=== PATIENT | male | born 1945 | race Caucasian/White ===

== ENCOUNTER 2016-10-14 04:03 | Outpatient (CLI) | payer MEDICARE, OTHER | END 2016-10-14 04:04 | disposition critical access hospital (66) | LOC: EMS 04:03 | PROVIDERS: ATTEND Surgery | DX: R55 Syncope and collapse (principal) | CPT/HCPCS: A0425; A0427 ==

== ENCOUNTER 2016-10-14 04:43 | Emergency (ER) | payer MEDICARE, OTHER ==
--- NOTE | 2016-10-14 05:18 | ED Physician Documentation ---
PD HPI SYNCOPE - Stated complaint Stated Complaint: GLF - Chief complaint Chief Complaint: Cardiac - History obtained from History obtained from: Patient, Family, EMS - History of Present Illness Witnessed: Witnessed Timing - onset: Enter time (299), Today Duration: Seconds Preceding symptoms: Diaphoresis, Light headed, Generalized weakness Associated symptoms: Seizure, Diaphoresis Contributing factors: Recent med change, Just stood up Injury occurred: Fell, Other (has some back pain similar to what he has had preivously with morning stiffness). No: Head injury, Neck injury, Bit tongue Similar symptoms before: Has not had sx before Recently seen: Not recently seen - Additional information Additional information: 71 y/o male with a history of afib is visiting [facility] from [place] has been here about a week and has developed a cough. He did have plane travel last week and he has been taking some Coricidin for nasal congestion and cough. He has taken about 6 doses today and he was awake in the tobacco grader with a feeling of anxiety. He was wondering if this was going to be the end. He eventually went to get up and felt dizzy and light headed and he stumbled about the room finally grabbing the door and then collapsing to the floor. His reports a brief seizure associated with this and he felt that he was feeling normal again relatively rapidly. When medics arrived they found the patient to be diaphoretic with BG of 183 and heart rate in the 90's in afib. Review of Systems Constitutional: reports: Sweats. denies: Fever Eyes: denies: Decreased vision Ears: denies: Ear pain Nose: reports: Rhinorrhea / runny nose, Congestion, Sinus pressure / pain Throat: denies: Sore throat Cardiac: denies: Chest pain / pressure, Palpitations Respiratory: reports: Cough. denies: Dyspnea GI: denies: Abdominal Pain, Nausea, Vomiting, Constipation, Diarrhea : denies: Dysuria, Frequency Skin: denies: Rash Musculoskeletal: denies: Neck pain, Back pain, Extremity pain Neurologic: reports: Syncope, Seizure, LOC. denies: Generalized weakness, Focal weakness, Numbness, Headache, Head injury PD PAST MEDICAL HISTORY - Present Medications Home Medications: Ambulatory Orders Medication Instructions Recorded Confirmed Allopurinol [Zyloprim] 300 mg PO DAILY 10/14/16 10/14/16 Aspirin 81 mg PO DAILY 10/14/16 10/14/16 Atorvastatin Calcium 40 mg PO DAILY 10/14/16 10/14/16 Azithromycin [Zithromax] 250 mg PO DAILY #6 tablet 10/14/16 Liraglutide [Victoza 2-Mando] 10/14/16 Lisinopril 40 mg PO DAILY 10/14/16 10/14/16 Loteprednol Etabonate [Lotemax] 1 drops EACHEYE BID 10/14/16 10/14/16 Metoprolol Tartrate 1.5 tab PO BID 10/14/16 10/14/16 Timolol 0.5% Ophth Drops [Timoptic 1 drops EACHEYE BID 10/14/16 10/14/16 0.5% Ophth Drops] Warfarin [Coumadin] 1.5 tab PO BID 10/14/16 10/14/16 metFORMIN [Glucophage] 500 mg PO DAILY 10/14/16 10/14/16 - Allergies Allergies/Adverse Reactions: Allergies Allergy/AdvReac Type Severity Reaction Status Date / Time No Known Drug Allergies Allergy Verified 10/14/16 04:52 PD ED PE NORMAL - Vitals Vital signs reviewed: Yes (hypertensive ) - General General: Alert and oriented X 3, No acute distress, Well developed/nourished - HEENT HEENT: Atraumatic, PERRL, EOMI, Moist mucous membranes, Pharynx benign, Other ( both TM's are with patchy erythema and distortion of the landmarks. 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, No motor deficit, No sensory deficit, Normal speech - Psych Psych: Normal mood, Normal affect Results - Vitals Vitals: Vital Signs - 24 hr 10/14/16 10/14/16 10/14/16 04:43 05:08 05:35 Temperature 36.0 C L Heart Rate 82 90 Respiratory 11 L 16 Rate Blood Pressure 152/98 H 133/88 H Blood Pressure 146/100 H [Left] Blood Pressure 159/99 H [Right] O2 Saturation 98 96 10/14/16 10/14/16 06:06 06:58 Temperature 36.7 C Heart Rate 91 84 Respiratory 12 12 Rate Blood Pressure 123/86 H 131/94 H Blood Pressure [Left] Blood Pressure [Right] O2 Saturation 97 96 Oxygen O2 Source Room air - EKG (time done) 0451 Rate: Rate (enter#) (85) Rhythm: Atrial fibrillation Ischemia: Non specific changes Compare to prior EKG: Old EKG unavailable Computer interpretation: Agree with computer - Labs Labs: Laboratory Tests 10/14/16 10/14/16 10/14/16 04:47 04:47 04:47 WBC 5.7 RBC 4.58 L Hgb 14.4 Hct 43.2 MCV 94.4 H MCH 31.5 H MCHC 33.3 RDW 13.9 Plt Count 138 MPV 9.7 Neut # 3.8 Lymph # 1.2 L Crane # 0.4 Eos # 0.1 Baso # 0.1 Absolute Nucleated RBC 0.00 Nucleated RBCs 0.0 PT 20.0 H INR 1.8 H Sodium 139 Potassium 4.0 Chloride 103 Carbon Dioxide 27 Anion Gap 9.0 BUN 13 Creatinine 0.6 Estimated GFR (MDRD) 134 Glucose 218 H Calcium 9.3 Total Bilirubin 0.9 AST 44 H ALT 45 Alkaline Phosphatase 93 Troponin I B-Natriuretic Peptide Total Protein 7.1 Albumin 4.0 Globulin 3.1 Albumin/Globulin Ratio 1.3 Lipase 38 Urine Color Urine Clarity Urine pH Ur Specific Pipestem Urine Protein Urine Glucose (UA) Urine Ketones Urine Occult Blood Urine Nitrite Urine Bilirubin Urine Urobilinogen Ur Leukocyte Esterase Urine RBC Urine WBC Ur Squamous Epith Cells Urine Bacteria Ur Microscopic Review Urine Culture Comments Ethyl Alcohol < 5.0 10/14/16 10/14/16 10/14/16 04:47 04:47 05:25 WBC RBC Hgb Hct MCV MCH MCHC RDW Plt Count MPV Neut # Lymph # Crane # Eos # Baso # Absolute Nucleated RBC Nucleated RBCs PT INR Sodium Potassium Chloride Carbon Dioxide Anion Gap BUN Creatinine Estimated GFR (MDRD) Glucose Calcium Total Bilirubin AST ALT Alkaline Phosphatase Troponin I < 0.04 B-Natriuretic Peptide 94 Total Protein Albumin Globulin Albumin/Globulin Ratio Lipase Urine Color YELLOW Urine Clarity CLEAR Urine pH 6.0 Ur Specific Pipestem 1.020 Urine Protein 30 H Urine Glucose (UA) NEGATIVE Urine Ketones NEGATIVE Urine Occult Blood TRACE-INTA Urine Nitrite NEGATIVE Urine Bilirubin NEGATIVE Urine Urobilinogen 0.2 (NORMAL) Ur Leukocyte Esterase NEGATIVE Urine RBC None Seen Urine WBC 0-3 Ur Squamous Epith Cells NONE SEEN Urine Bacteria None Seen Ur Microscopic Review INDICATED Urine Culture Comments NOT INDICATED Ethyl Alcohol 10/14/16 06:50 WBC RBC Hgb Hct MCV MCH MCHC RDW Plt Count MPV Neut # Lymph # Crane # Eos # Baso # Absolute Nucleated RBC Nucleated RBCs PT INR Sodium Potassium Chloride Carbon Dioxide Anion Gap BUN Creatinine Estimated GFR (MDRD) Glucose Calcium Total Bilirubin AST ALT Alkaline Phosphatase Troponin I < 0.04 B-Natriuretic Peptide Total Protein Albumin Globulin Albumin/Globulin Ratio Lipase Urine Color Urine Clarity Urine pH Ur Specific Pipestem Urine Protein Urine Glucose (UA) Urine Ketones Urine Occult Blood Urine Nitrite Urine Bilirubin Urine Urobilinogen Ur Leukocyte Esterase Urine RBC Urine WBC Ur Squamous Epith Cells Urine Bacteria Ur Microscopic Review Urine Culture Comments Ethyl Alcohol - Rads (name of study) two-view chest Radiology: Prelim report reviewed (Impression: 1. Borderline heart size. 2. No focal consolidation seen.), EMP read indepedently, See rad report CT head without Radiology: Prelim report reviewed (Impression: No acute or focal intracranial abnormality.), EMP read indepedently, See rad report Procedures - IVC sono (time) 0455 Bedside IVC sono: IVC measures (cm) (1.92), Euvolemia PD MEDICAL DECISION MAKING - ED course Complexity details: reviewed results, re-evaluated patient, considered differential, d/w patient, d/w family ED course: 71 y/o male with a dramatic syncope and seizure this morning now feels well and wants to go home. He was taking some coricidin with dextromethorphan and I suspect this caused the patients feeling of anxiety and confusion while he was awake and when he tried to get up he had the syncopal episode. He was not found to be dehydrated and his laboratory studies are all WNL as were imaging of the head and chest. He is ambulated in the department without difficulty and wants to catch a flight home this evening. He does have OM on exam but this appears mild and not likely related to anything except that he was taking the coridicin. A second troponin is negative and this well appearing and well acting male is discharged to follow up at home. He is given decadron 10mg PO for the OM. Departure - Departure Disposition: Home, Self Care Clinical Impression: Syncope, convulsive, Medication side effects Otitis media Qualifiers: Otitis media type: suppurative Laterality: bilateral Chronicity: acute Recurrence: not specified as recurrent Spontaneous tympanic membrane rupture: without spontaneous rupture Qualified Code(s): H66.003 - Acute suppurative otitis media without spontaneous rupture of ear drum, bilateral Condition: Stable Instructions: ED Ear Infec Wait See Abx Tx Ch, ED Syncope Vasovagal Follow-Up: Your, doctor [Other] Prescriptions: Azithromycin [Zithromax] 250 mg PO DAILY #6 tablet Comments: Today we have written a prescription for an antibiotic. You will need to have your INR checked in about 3 days.
[2016-10-14 05:25] LABS: BASOPHILS # (AUTO) 0.1 10^3/uL (0.0-0.1); BASOPHILS % (AUTO) 1.2 %; EOSINOPHILS # (AUTO) 0.1 10^3/uL (0.0-0.7); EOSINOPHILS % (AUTO) 1.8 %; HCT - HEMATOCRIT 43.2 % (42.0-52.0); HGB - HEMOGLOBIN 14.4 g/dL (14.0-18.0); LYMPHOCYTES # (AUTO) 1.2 10^3/uL (1.5-3.5); LYMPHOCYTES % (AUTO) 21.8 %; MEAN CORPUSCULAR HEMOGLOBIN 31.5 pg (27.0-31.0); MEAN CORPUSCULAR HGB CONC 33.3 g/dL (32.0-36.0); MEAN CORPUSCULAR VOLUME 94.4 fL (80.0-94.0); MEAN PLATELET VOLUME 9.7 fL (7.4-11.4); MONOCYTES # (AUTO) 0.4 10^3/uL (0.0-1.0); MONOCYTES % (AUTO) 7.5 %; NEUTROPHILS # (AUTO) 3.8 10^3/uL (1.5-6.6); NEUTROPHILS % (AUTO) 67.7 %; RED BLOOD COUNT 4.58 10^6/uL (4.70-6.10); RED CELL DISTRIBUTION WIDTH 13.9 % (12.0-15.0); UNCORRECTED WHITE BLOOD COUNT 5.7 x10^3/uL; WHITE BLOOD COUNT 5.7 x10^3/uL (4.8-10.8)
[2016-10-14 05:31] LABS: BILIRUBIN,URINE NEGATIVE (NEGATIVE)
[2016-10-14 05:32] LABS: UA w/ MICROSCOPIC CHARGE YES
[2016-10-14 05:33] LABS: ALBUMIN/GLOBULIN RATIO 1.3 (1.0-2.2); BILIRUBIN,TOTAL 0.9 mg/dL (0.2-1.0); BUN - BLOOD UREA NITROGEN 13 mg/dL (6-20); CALCIUM 9.3 mg/dL (8.5-10.3); CARBON DIOXIDE - CO2 27 mmol/L (21-32); CHLORIDE 103 mmol/L (101-111); CREATININE 0.6 mg/dL (0.6-1.2); GFR - MDRD 134 (>89); GLUCOSE 218 mg/dL (70-100); LIPASE 38 U/L (22-51); SODIUM 139 mmol/L (135-145); TOTAL PROTEIN 7.1 g/dL (6.7-8.2)
[2016-10-14 05:34] LABS: INR 1.8 (0.8-1.2)
--- NOTE | 2016-10-14 05:39 | CT Preliminary Report ---
Exam: CT Head W/O IMPRESSION: No acute or focal intracranial abnormality. [facility] SITE ID: [id number]
--- NOTE | 2016-10-14 05:42 | CT Report ---
EXAM: CT HEAD EXAM DATE: 10/14/2016 05:29 AM. CLINICAL HISTORY: Syncope, seizure, on coumadin. COMPARISON: None. TECHNIQUE: Multiaxial CT images were obtained from the foramen magnum to the vertex. IV contrast: Non e. Reformats: Coronal. In accordance with CT protocol optimization, one or more of the following dose reduction techniques w ere utilized for this exam: automated exposure control, adjustment of mA and/or KV based on patient s ize, or use of iterative reconstructive technique. FINDINGS: Parenchyma: No intraparenchymal hemorrhage. No evidence of mass, midline shift, or CT findings of inf arction. Wang-white differentiation is distinct. Extraaxial Spaces: Normal for age. No subdural or epidural collections identified. Ventricles: Normal in size and position. Sinuses: Imaged paranasal sinuses, orbits, and mastoids show no significant abnormality. Bones: No evidence of fracture or calvarial defect. Other: None. IMPRESSION: No acute or focal intracranial abnormality. [facility] Referring Provider Line: [phone] SITE ID: [id number]
[2016-10-14 05:43] LABS: UR CULTURE IF IND NOT INDICATED; WBC,URINE 0-3 /HPF (0-3)
--- NOTE | 2016-10-14 05:43 | XRAY Preliminary Report ---
Exam: XR Chest 2 View PA/LAT IMPRESSION: 1. Borderline heart size. 2. No focal consolidation seen. [facility] SITE ID: [id number]
--- NOTE | 2016-10-14 05:45 | XRAY Report ---
EXAM: CHEST RADIOGRAPHY EXAM DATE: 10/14/2016 05:29 AM. CLINICAL HISTORY: Syncope, cough . COMPARISON: None. TECHNIQUE: 2 views. FINDINGS: Lungs/Pleura: No alveolar consolidation or pleural effusion. No pneumothorax. Mediastinum: Heart size upper normal. Aortic atherosclerosis. Other: None. IMPRESSION: 1. Borderline heart size. 2. No focal consolidation seen. [facility] Referring Provider Line: [phone] SITE ID: [id number]
[2016-10-14] MEDS ORDERED: DEXAMETHASONE 10 MG/ML VIAL PO STA (06:26)
[2016-10-14] MEDS ORDERED: DEXAMETHASONE 10 MG/ML VIAL ONE (06:32)
[2016-10-14] MEDS ORDERED: CHERRY SYRUP 10 ML UDC PO ONE (06:32)
[2016-10-14 07:38] VITALS: BP 147/79
== END 2016-10-14 07:35 | disposition home or self-care (01) ==
LOC: ED 04:43
DX: R55 Syncope and collapse (principal); T50.995A Adverse effect of other drugs, medicaments and biological substances, initial encounter; W01.0XXA Fall on same level from slipping, tripping and stumbling without subsequent striking against object, initial encounter; H66.003 Acute suppurative otitis media without spontaneous rupture of ear drum, bilateral; I48.91 Unspecified atrial fibrillation; Z79.01 Long term (current) use of anticoagulants; Z79.82 Long term (current) use of aspirin
CPT/HCPCS: 36415; 70450; 71020; 80053; 81001; 83690; 83880; 84484; 85025; 85610; 93005; 93010; 99284; 99285; A9270; G0480; 80320; 81003; 87086